=== PATIENT | female | born 1970 | race African-American/Black ===

== ENCOUNTER 2022-09-26 13:04 | Emergency (ER) | payer MEDICAID, OTHER ==
[~2022-09-26] VITALS: Ht 149.9 cm; Wt 70.0 kg
[2022-09-26 13:09] VITALS: BP 173/103; PULSE 89; RESP 18; TEMP 98.6; O2SAT 100
[2022-09-26 15:06] LABS: D-DIMER 0.23 mg/L FEU (<0.50); PROTHROMBIN TIME 10.8 sec (9.6-11.0)
[2022-09-26 15:08] LABS: BASOPHILS % 0.5 % (0.0-2.0); EOSINOPHILS % 1.3 % (0.0-5.0); HEMATOCRIT. 37.5 % (36.0-48.0); HEMOGLOBIN. 12.4 g/dL (12.0-16.0); LYMPHOCYTES % 29.2 % (20.0-50.0); MEAN CORPUSCULAR VOLUME 93.8 fL (81.0-99.0); MEAN PLATELET VOLUME 7.6 fl (7.4-10.4); MONOCYTES % 8.6 % (2.0-8.0); NEUTROPHILS % 60.4 % (40.0-76.0); PLATELET 311 x1000/uL (130-400); RED CELL DISTRIBUTION WIDTH 14.7 % (11.6-14.6)
[2022-09-26 16:30] LABS: CHLORIDE 113 mEq/L (98-107)
== END 2022-09-26 19:03 | disposition home or self-care (01) ==
LOC: ER 13:04
DX: R55 Syncope and collapse (principal); R32 Unspecified urinary incontinence; R07.89 Other chest pain; I10 Essential (primary) hypertension; I25.2 Old myocardial infarction
CPT/HCPCS: 36415; 71045; 73562; 80053; 83880; 84484; 85025; 85379; 93005; 99285

== ENCOUNTER 2022-09-26 19:02 | Emergency (ER) | payer MEDICAID, OTHER ==
[~2022-09-26] VITALS: Ht 149.9 cm; Wt 71.0 kg
[2022-09-26 19:18] VITALS: O2SAT 98
[2022-09-27 06:19] LABS: BASOPHILS % 0.5 % (0.0-2.0); EOSINOPHILS % 1.4 % (0.0-5.0); HEMATOCRIT. 33.5 % (36.0-48.0); HEMOGLOBIN. 11.3 g/dL (12.0-16.0); LYMPHOCYTES % 28.2 % (20.0-50.0); MEAN CORPUSCULAR HEMOGLOBIN 31.9 pg (28.0-32.0); MEAN CORPUSCULAR VOLUME 94.2 fL (81.0-99.0); MEAN PLATELET VOLUME 7.7 fl (7.4-10.4); MONOCYTES % 12.1 % (2.0-8.0); NEUTROPHILS % 57.8 % (40.0-76.0); PLATELET 274 x1000/uL (130-400); RED BLOOD CELL COUNT 3.55 mill/uL (4.2-5.4); RED CELL DISTRIBUTION WIDTH 14.9 % (11.6-14.6)
[2022-09-27 06:37] LABS: CHLORIDE 113 mEq/L (98-107)
[2022-09-27 06:38] VITALS: BP 120/66; PULSE 93; RESP 17; TEMP 98.2
[2022-09-27] MEDS ORDERED: ONDANSETRON 4MG ODT PO NR (06:45)
[2022-09-27] MEDS ORDERED: HYDROCODONE/ACETAMINOPHEN 10/325MG TABLET PO NR (06:45)
== END 2022-09-27 07:38 | disposition left against medical advice (07) ==
LOC: ER 19:02
DX: R55 Syncope and collapse (principal); M79.10 Myalgia, unspecified site; R07.89 Other chest pain; I10 Essential (primary) hypertension; I25.2 Old myocardial infarction
CPT/HCPCS: 36415; 80048; 84484; 85025; 93005; 99284